=== PATIENT | female | born 1955 | race Caucasian/White ===

== ENCOUNTER → 2020-06-30 | Day surgery (SDC) | payer MEDICARE, BC ==
[~2020-06-30] MED LIST: Acetaminophen 325 MG Tab PO SCH; Cyclobenzaprine 10 MG Tab PO ONE; Ketorolac 30 MG/ML SDV IVPUSH PRN; Lactated Ringers 1,000 ML IV SCH; Lactated Ringers 1,000 ML ONE; Lidocaine 1% 4 ML ONE; Lidocaine 1%/Sod Bicarbonate in NS 8.4% 1 ML Syringe IDERM PRN; Pregabalin 25 MG Cap PO SCH; Propofol 200 MG/20 ML SDV ONE; Sodium Chloride 0.9% 10 ML Syringe FLUSH PRN; ceFAZolin 1 GM Vial ONE; fentaNYL 100 MCG/2 ML SDV IVPUSH PRN; fentaNYL 100 MCG/2 ML SDV ONE; oxyCODONE 5 MG Tab PO PRN; oxyCODONE ER 10 MG TAB.ER PO SCH
--- NOTE | 2020-06-30 08:59 | PCM.PREANE ---
Preanesthetic Assessment - Procedure Proposed Procedure: Total Right Hip Arthroplasty - Review of Systems Pulmonary: No Symptoms (Rigth TMJ/clicking noted) Neurological: No Symptoms (Fibromyalgia Syndrome/Arthritis/chronic lower back pain) Other: Reports: Depression, Anxiety - Lab Values: Laboratory Last Values MRSA (PCR) Negative 06/20/20 14:09 - Allergies Allergies/Adverse Reactions: Allergies Allergy/AdvReac Type Severity Reaction Status Date / Time bupropion [From Wellbutrin] Allergy Rash Verified 06/27/20 11:33 escitalopram [From Lexapro] Allergy Fatigue Verified 06/27/20 11:33 sertraline [From Zoloft] Allergy dry mouth Verified 06/27/20 11:33 trazodone Allergy Cough Verified 06/27/20 11:33 PreAnesthesia Questionnaire HEENT History: Reports: Allergic Rhinitis, Impaired Vision, Sinusitis, Other (See Below) Other HEENT History: wears glasses, tonsilitis, dental pain Cardiovascular History: Reports: High Cholesterol Respiratory History: Reports: None Gastrointestinal History: Reports: None Genitourinary History: Reports: Renal Calculus PERIPATOLOGIST History: Reports: Other (See Below) Other OB/BYN History: hot flashes, post menopausal Musculoskeletal History: Reports: Fibromyalgia, Osteoarthritis, Other (See Below) Other Musculoskeletal History: sjogrens, body aches, chronic pain, ankylosing spondylitis, coccydynia, lumbar back pain, myalgia, myositis, neck pain, right hip pain, left shoulder rotator cuff impingement, psoriatic arthritis Neurological History: Reports: Other (See Below) Other Neuro History: paresthesia Psychiatric History: Reports: Anxiety, Depression, Other (See Below) Other Psychiatric History: insomnia, fatigue Endocrine/Metabolic History: Reports: None Hematologic History: Reports: None Immunologic History: Reports: Other (See Below) Other Immunologic History: sjogrens Oncologic (Cancer) History: Reports: None Dermatologic History: Reports: Other (See Below) Other Dermatologic History: pruritis, seborrheic keratosis, rash, spongiotic dermatitis - Infectious Disease History Infectious Disease History: Reports: Novel Coronavirus, Other (See Below) Other Infectious Disease History: Covid February 2020 - Past Surgical History HEENT Surgical History: Reports: None Cardiovascular Surgical History: Reports: None Respiratory Surgical History: Reports: None GI Surgical History: Reports: Colonoscopy Female Surgical History: Reports: Other (See Below) Other Female Surgeries/Procedures: open kidney stone removal Endocrine Surgical History: Reports: None Neurological Surgical History: Reports: C-Spine, Discectomy, Spinal Fusion, Other (See Below) Musculoskeletal Surgical History: Reports: None Oncologic Surgical History: Reports: None - SUBSTANCE USE Tobacco Use Status *Q: Never Tobacco User Recreational Drug Use History: No - HOME MEDS Home Medications: Home Meds Calcium Carb/D3/Magnesium/Zinc [Marcellus Mag Zinc + D3] 1 tab PO DAILY 06/27/20 [History] Cholecalciferol (Vitamin D3) [Vitamin D3] 5,000 unit PO DAILY 06/27/20 [History] DULoxetine [Cymbalta] 30 mg PO DAILY 06/27/20 [History] DULoxetine [Cymbalta] 60 mg PO DAILY 06/27/20 [History] Docusate Sodium [Colace] 100 mg PO DAILY 06/27/20 [History] Fish Oil/[place]-3 Fatty Acids [Fish Oil 1,000 MG] 1 gm PO DAILY 06/27/20 [History] Gabapentin [Neurontin] 900 mg PO BEDTIME 06/27/20 [History] Multivitamin 1 tab PO DAILY 06/27/20 [History] Pilocarpine [Salagen] 2.5 - 5 mg PO Q6H PRN 06/27/20 [History] Tetrahydrozoline HCl [Eye Drops] 1 drop EYEBOTH TID 06/27/20 [History] Venlafaxine [Effexor XR] 37.5 mg PO DAILY 06/27/20 [History] Aspirin [Aspirin EC] 325 mg PO BID #70 tab 06/30/20 [Rx] Cyclobenzaprine [Flexeril] 5 mg PO BID PRN #20 tab 06/30/20 [Rx] oxyCODONE 5 - 10 mg PO Q4H PRN #40 tab 06/30/20 [Rx] - CURRENT (IN HOUSE) MEDS Current Meds: Current Medications Acetaminophen (Acetaminophen 325 Mg Tab) 975 mg PO ONETIME ROSIE Stop: 06/30/20 13:00 Morphine Sulfate 8 mg/Epinephrine HCl 0.3 mg/Cefuroxime Sodium 750 mg/Ketorolac Tromethamine 30 mg/Sodium Chloride 7.9 ml 0 mg .XX ASDIRECTED PRN PRN Reason: Pain Stop: 06/30/20 13:00 Lactated Ringer's (Ringers, Lactated) 1,000 mls @ 125 mls/hr IV ASDIRECTED ROSIE Stop: 06/30/20 23:00 Lidocaine/Sodium Bicarbonate (Lidocaine 1%/Sod Bicarbonate In Ns 8.4% 1 Ml Syringe) 0.25 ml IDERM ONETIME PRN PRN Reason: Prior to IV Start Stop: 06/30/20 18:00 Oxycodone HCl (Oxycodone Er 10 Mg Tab.Er) 10 mg PO ONETIME ROSIE Stop: 06/30/20 13:00 Pregabalin (Pregabalin 25 Mg Cap) 50 mg PO ONETIME ROSIE Stop: 06/30/20 13:00 Sodium Chloride (Sodium Chloride 0.9% 10 Ml Syringe) 10 ml FLUSH ASDIRECTED PRN PRN Reason: Keep Vein Open Stop: 06/30/20 18:00
--- NOTE | 2020-06-30 09:38 | PCM.PREANE ---
Preanesthetic Assessment - Procedure Proposed Procedure: Right total hip arthroplasty - Anesthesia/Transfusion/Family Hx Anesthesia History: Prior Anesthesia Without Reaction Family History of Anesthesia Reaction: No Transfusion History: No Prior Transfusion(s) - Review of Systems General: No Symptoms Pulmonary: No Symptoms Cardiovascular: No Symptoms Gastrointestinal: No Symptoms Neurological: No Symptoms Other: Reports: Anxiety - Physical Assessment NPO Status Date: 06/29/20 NPO Status Time: 00:00 Height: 1.63 m Weight: 58.06 kg ASA Class: 2 Mental Status: Alert & Oriented x3 Dentition: Reports: Implants (lower right) Thyro-Mental Finger Breadths: 3 Mouth Opening Finger Breadths: 2 ROM/Head Extension: Full Lungs: Clear to Auscultation, Normal Respiratory Effort Cardiovascular: Regular Rate, Regular Rhythm - Lab Values: Laboratory Last Values MRSA (PCR) Negative 06/20/20 14:09 - Imaging/EKG Impressions: EKG SR rate 69 - Allergies Allergies/Adverse Reactions: Allergies Allergy/AdvReac Type Severity Reaction Status Date / Time bupropion [From Wellbutrin] Allergy Rash Verified 06/27/20 11:33 escitalopram [From Lexapro] Allergy Fatigue Verified 06/27/20 11:33 sertraline [From Zoloft] Allergy dry mouth Verified 06/27/20 11:33 trazodone Allergy Cough Verified 06/27/20 11:33 - Anesthesia Plan Pre-Op Medication Ordered: None - Acknowledgements Anesthesia Type Planned: Spinal Pt an Appropriate Candidate for the Planned Anesthesia: Yes Alternatives and Risks of Anesthesia Discussed w Pt/Guardian: Yes Pt/Guardian Understands and Agrees with Anesthesia Plan: Yes PreAnesthesia Questionnaire HEENT History: Reports: Allergic Rhinitis, Impaired Vision, Sinusitis, Other (See Below) Other HEENT History: wears glasses, tonsilitis, dental pain Cardiovascular History: Reports: High Cholesterol Respiratory History: Reports: None Gastrointestinal History: Reports: None Genitourinary History: Reports: Renal Calculus HEALTH PLAN SPECIALIST History: Reports: Other (See Below) Other OB/BYN History: hot flashes, post menopausal Musculoskeletal History: Reports: Fibromyalgia, Osteoarthritis, Other (See Below) Other Musculoskeletal History: sjogrens, body aches, chronic pain, ankylosing spondylitis, coccydynia, lumbar back pain, myalgia, myositis, neck pain, right hip pain, left shoulder rotator cuff impingement, psoriatic arthritis Neurological History: Reports: Other (See Below) Other Neuro History: paresthesia Psychiatric History: Reports: Anxiety, Depression, Other (See Below) Other Psychiatric History: insomnia, fatigue Endocrine/Metabolic History: Reports: None Hematologic History: Reports: None Immunologic History: Reports: Other (See Below) Other Immunologic History: sjogrens Oncologic (Cancer) History: Reports: None Dermatologic History: Reports: Other (See Below) Other Dermatologic History: pruritis, seborrheic keratosis, rash, spongiotic dermatitis - Infectious Disease History Infectious Disease History: Reports: Novel Coronavirus, Other (See Below) Other Infectious Disease History: Covid February 2020 - Past Surgical History HEENT Surgical History: Reports: None Cardiovascular Surgical History: Reports: None Respiratory Surgical History: Reports: None GI Surgical History: Reports: Colonoscopy Female Surgical History: Reports: Other (See Below) Other Female Surgeries/Procedures: open kidney stone removal Endocrine Surgical History: Reports: None Neurological Surgical History: Reports: C-Spine, Discectomy, Spinal Fusion, Other (See Below) Musculoskeletal Surgical History: Reports: None Oncologic Surgical History: Reports: None - SUBSTANCE USE Tobacco Use Status *Q: Never Tobacco User Tobacco Use Within Last Twelve Months: No Second Hand Smoke Exposure: No Days Per Week of Alcohol Use: 0 Number of Drinks Per Day: 0 Total Drinks Per Week: 0 Recreational Drug Use History: No - HOME MEDS Home Medications: Home Meds Calcium Carb/D3/Magnesium/Zinc [[place] Mag Zinc + D3] 1 tab PO DAILY 06/27/20 [History] Cholecalciferol (Vitamin D3) [Vitamin D3] 5,000 unit PO DAILY 06/27/20 [History] DULoxetine [Cymbalta] 30 mg PO DAILY 06/27/20 [History] DULoxetine [Cymbalta] 60 mg PO DAILY 06/27/20 [History] Docusate Sodium [Colace] 100 mg PO DAILY 06/27/20 [History] Fish Oil/[place]-3 Fatty Acids [Fish Oil 1,000 MG] 1 gm PO DAILY 06/27/20 [History] Gabapentin [Neurontin] 900 mg PO BEDTIME 06/27/20 [History] Multivitamin 1 tab PO DAILY 06/27/20 [History] Pilocarpine [Salagen] 2.5 - 5 mg PO Q6H PRN 06/27/20 [History] Tetrahydrozoline HCl [Eye Drops] 1 drop EYEBOTH TID 06/27/20 [History] Venlafaxine [Effexor XR] 37.5 mg PO DAILY 06/27/20 [History] Aspirin [Aspirin EC] 325 mg PO BID #70 tab 06/30/20 [Rx] Cyclobenzaprine [Flexeril] 5 mg PO BID PRN #20 tab 06/30/20 [Rx] oxyCODONE 5 - 10 mg PO Q4H PRN #40 tab 06/30/20 [Rx] - CURRENT (IN HOUSE) MEDS Current Meds: Current Medications Acetaminophen (Acetaminophen 325 Mg Tab) 975 mg PO ONETIME ROSIE Stop: 06/30/20 13:00 Last Admin: 06/30/20 09:13 Dose: 975 mg Documented by: Morphine Sulfate 8 mg/Epinephrine HCl 0.3 mg/Cefuroxime Sodium 750 mg/Ketorolac Tromethamine 30 mg/Sodium Chloride 7.9 ml 0 mg .XX ASDIRECTED PRN PRN Reason: Pain Stop: 06/30/20 13:00 Lactated Ringer's (Ringers, Lactated) 1,000 mls @ 125 mls/hr IV ASDIRECTED ROSIE Stop: 06/30/20 23:00 Lidocaine/Sodium Bicarbonate (Lidocaine 1%/Sod Bicarbonate In Ns 8.4% 1 Ml Syringe) 0.25 ml IDERM ONETIME PRN PRN Reason: Prior to IV Start Stop: 06/30/20 18:00 Oxycodone HCl (Oxycodone Er 10 Mg Tab.Er) 10 mg PO ONETIME ROSIE Stop: 06/30/20 13:00 Last Admin: 06/30/20 09:13 Dose: 10 mg Documented by: Pregabalin (Pregabalin 25 Mg Cap) 50 mg PO ONETIME ROSIE Stop: 06/30/20 13:00 Last Admin: 06/30/20 09:13 Dose: 50 mg Documented by: Sodium Chloride (Sodium Chloride 0.9% 10 Ml Syringe) 10 ml FLUSH ASDIRECTED PRN PRN Reason: Keep Vein Open Stop: 06/30/20 18:00
[2020-06-30] MEDS: Vancomycin 1 GM SDV ONE ×2 (11:57→12:27)
[2020-06-30] MEDS: Morphine 8 MG, EPINEPHrine 0.3 MG, Cefuroxime 750 MG, Ketorolac 30 MG, Sodium Chloride ... PRN ×10 (11:57→12:25)
--- NOTE | 2020-06-30 13:06 | PCM.POSTAN ---
POST ANESTHESIA ASSESSMENT - MENTAL STATUS Mental Status: Alert, Oriented - VITAL SIGNS Vital Signs: Last Vital Signs Temp 36.6 C 06/30/20 09:10 Pulse 75 06/30/20 09:10 Resp 20 06/30/20 09:10 BP 112/56 L 06/30/20 09:10 Pulse Ox 98 06/30/20 09:10 - RESPIRATORY Respiratory Status: Respiratory Rate WNL, Airway Patent, O2 Saturation Stable, Supplemental Oxygen - CARDIOVASCULAR CV Status: Pulse Rate WNL, Blood Pressure Stable - GASTROINTESTINAL GI Status: No Symptoms - PAIN Pain Score: 0 - POST OP HYDRATION Hydration Status: Adequate & Stable - OBSERVATIONS Free Text/Narrative:: no anesthesia complications noted
--- NOTE | 2020-06-30 14:21 | CR ---
Pelvis and right hip: AP view of the pelvis was obtained as well as crosstable lateral view of the right hip. Comparison: Prior right hip CT study of 06/17/20. Right hip prosthesis is seen. Components are aligned. Degenerative joint space narrowing is seen within the left hip. Osteopenia is noted. Soft tissue air is noted around the right hip. Impression: 1. Satisfactory appearance of recently placed right hip prosthesis. 2. Fairly severe degenerative change is noted within the left hip. 3. Osteopenia. Diagnostic code #3
--- NOTE | 2020-06-30 17:56 | PCM.OPNOTE ---
- General Post-Op/Procedure Note Date of Surgery/Procedure: 06/30/20 Operative Procedure(s): right total hip arthroplasty with [employer]on[employer] robotics Pre Op Diagnosis: right hip osteoarthrosis Post-Op Diagnosis: Same Anesthesia Technique: Local, MAC, Spinal Primary Surgeon: Kavon Sherman Anesthesia Provider: Tristian Myers Commercial Loan Underwriter: Jonelle Guzmán Commercial Loan Underwriter: More Hunter Complications: None Condition: Good Free Text/Narrative:: Intake & Output 06/30/20 06/30/20 06/30/20 06:59 14:59 22:59 Intake Total 150 Balance 150 52 cup 5 stem 36+0
--- NOTE | 2020-07-10 08:00 | OR ---
DATE OF OPERATION: 06/30/2020 SURGEON: Kavon Sherman MD OPERATION PERFORMED: Right total hip arthroplasty with [employer] robotics. PREOPERATIVE DIAGNOSIS: Right hip osteoarthrosis. POSTOPERATIVE DIAGNOSIS: Right hip osteoarthrosis. ANESTHESIA: Local MAC with spinal. ANESTHESIA PROVIDER: Noah Wyatt. EVENT ATTENDANT: Jonelle Guzmán PA-C; and More Hunter LPN. ESTIMATED BLOOD LOSS: 200 mL. COMPLICATIONS: None. CONDITION: Stable. IMPLANTS: 1. [place] size 52 mm solid Tritanium II acetabular cup. 2. [place] size 5 Accolade II stem. 3. [place] size 36 +0 Biolox femoral head. DESCRIPTION OF PROCEDURE: The patient was identified in the preoperative holding area where proper site was marked and identified by surgeon. The patient was taken back to the operating theater where after adequate anesthesia, the patient was placed in the left lateral decubitus position. Pegs were placed. Bony prominences were well padded. Gluteal fold was parallel to the floor. Right hip was then sterilely prepped and draped in the usual sterile fashion. OR time-out was performed. The patient received 2 g IV Ancef. At this time, 3 pins were placed in the iliac crest 3 fingerbreadths from the ASIS and the [place] robotic array was placed and making sure that it was down on the iliac crest. At this time, standard posterior incision was made, and this was taken down to the IT band and gluteal fascia. This was incised along the incisional length. Charnley retractor was then placed. Short external rotators were identified. Takedown of the short external rotators was done from the level of the piriformis down to the lesser trochanter. The [place] robotic checkpoint was then placed in the greater trochanter and the hip was dislocated. Neck cut was completed and found to be adequate. Attention was turned to the acetabulum. Anterior and posterior acetabular retractors were placed. Circumferential removal of the labrum as well as pulvinar was done at this time. A checkpoint was then placed at the superior rim of the acetabulum extra-articularly. 15 points were then obtained intra-articularly. The anterior and posterior horns were marked using the [place] robotic array, and then 15 points were obtained from the extra- articular rim. At this time, the 52 mm reamer and a [place] Alexis robotic arm were brought in. The reamer was set for 45 degrees of abduction and 20 degrees of anteversion. The reaming was then completed until all green area was removed on the [place] robotic plan. The reamer was then removed. The 52 mm solid Tritanium II acetabular cup was placed on a [place] robotic arm and was impacted into place and was found to be in adequate position. The 36 flat liner was then impacted into place and attention was turned to the femur. Box chisel was used out laterally. Starter awl was placed down the canal. Starting with the 0 broach, I was able to broach up to a size 5 which was found to be rotationally and vertically stable. A 36 +0 was trialed, was found to have adequate christian of leg lengths, and was stable throughout range of motion. The trial implants were then removed. Size 5 Accolade II stem was impacted into place. A 36 +0 Biolox femoral head was impacted into place. Hip was then relocated. A #5 Ethibond suture was used for closure of the short external rotators and capsule. Periarticular injection was completed. 1 L pulse lavage irrigation with Ancef was then irrigated through the hip as well as 400 mL of IrriSept irrigation. Topical tranexamic acid and vancomycin powder were applied. A #2 barbed suture was used for closure of the IT band and gluteal fascia, 2-0 Vicryl was used subcutaneously, and Prineo was used for closure of the skin. The patient tolerated the procedure well and was sent to PACU in stable condition. MMODAL /[id number]
== END | disposition home or self-care (01) ==
LOC: JD.SDS 09:11
PROVIDERS: ATTEND Orthopaedic Surgery
DX: M16.11 Unilateral primary osteoarthritis, right hip (principal); G89.29 Other chronic pain; E78.5 Hyperlipidemia, unspecified; L40.50 Arthropathic psoriasis, unspecified; M35.00 Sjogren syndrome, unspecified; M45.9 Ankylosing spondylitis of unspecified sites in spine; E78.00 Pure hypercholesterolemia, unspecified; Z79.2 Long term (current) use of antibiotics; Z88.8 Allergy status to other drugs, medicaments and biological substances; Z79.899 Other long term (current) drug therapy; Z98.890 Other specified postprocedural states
CPT/HCPCS: 27130; 36415; 73501; 86850; 86900; 86901; 87641; 97116; 97161; 97165; 97535; A9270; C1713; C1776; J0171; J0690; J0697; J1885; J2270; J2370; J2704; J3010; J3370; J7120; 01214

== ENCOUNTER 2021-03-26 09:53 | Emergency (ER) | payer MEDICARE, BC ==
--- NOTE | 2021-03-26 10:37 | EDM.PDOC ---
ED HPI GENERAL MEDICAL PROBLEM - General Chief Complaint: Chest Pain Stated Complaint: [facility] Time Seen by Provider: 03/26/21 10:32 Source of Information: Reports: Patient History Limitations: Reports: No Limitations - History of Present Illness INITIAL COMMENTS - FREE TEXT/NARRATIVE: 66-year-old female presents to the ED per [facility]. She was seen in the clinic by her primary care provider Heaven Anthony both yesterday and today with left-sided precordial chest pain. Pain started about 3 days ago and tends to be quite sharp and lancinating seems to start in her back and travel around the rib into the anterior aspect of the chest. She states it is primarily felt under her left breast. It is made worse by deep breathing. No known chest wall trauma. No rash to identify shingles. She believes she had a Shingrix injection within the last 2 years. Denies cough or sputum production no fever or chills. ECG done in the clinic yesterday did not reveal any evidence of cardiac arrhythmia or myocardial infarction. Troponins done yesterday in clinic were reportedly negative. Pain is worse this morning and therefore she was transferred to our hospital for further work-up. No past history of DVT or PE. No recent surgeries on her lower extremities Onset: Gradual Onset Date: 03/24/21 Duration: Day(s):, Getting Worse Location: Reports: Chest (Chest wall pain starting primarily left back and radiating along ribs 5 and 6 into the anterior chest) Quality: Reports: Sharp, Stabbing, Other (Lancinating sharp stabbing shooting pain) Severity: Moderate (70 8 out of 10) Improves with: Reports: Rest Worsens with: Reports: Other (Made worse by movement and deep breathing) Context: Reports: Other (Spontaneous occurrence). Denies: Activity, Exercise, Lifting, Sick Contact, Trauma Associated Symptoms: Reports: Loss of Appetite, Shortness of Breath. Denies: Confusion, Chest Pain, Cough, cough w sputum, Diaphoresis, Fever/Chills, Headaches, Malaise, Nausea/Vomiting, Rash, Seizure, Syncope (Subjective dyspnea as deep breathing makes the pain worse.), Weakness Treatments POLICY VALUE CALCULATOR: Reports: Acetaminophen - Related Data Allergies Allergy/AdvReac Type Severity Reaction Status Date / Time bupropion [From Wellbutrin] Allergy Rash Verified 03/26/21 09:58 escitalopram [From Lexapro] AdvReac Fatigue Verified 03/26/21 09:58 sertraline [From Zoloft] AdvReac dry mouth Verified 03/26/21 09:58 trazodone AdvReac Cough Verified 03/26/21 09:58 Home Meds: Home Meds Calcium Carb/D3/Magnesium/Zinc [Marcellus Mag Zinc + D3] 1 tab PO DAILY 06/27/20 [History] Cholecalciferol (Vitamin D3) [Vitamin D3] 5,000 unit PO DAILY 06/27/20 [History] DULoxetine [Cymbalta] 30 mg PO DAILY 06/27/20 [History] DULoxetine [Cymbalta] 60 mg PO DAILY 06/27/20 [History] Docusate Sodium [Colace] 100 mg PO DAILY 06/27/20 [History] Fish Oil/Miles-3 Fatty Acids [Fish Oil 1,000 MG] 1 gm PO DAILY 06/27/20 [History] Gabapentin [Neurontin] 900 mg PO BEDTIME 06/27/20 [History] Multivitamin 1 tab PO DAILY 06/27/20 [History] Pilocarpine [Salagen] 2.5 - 5 mg PO Q6H PRN 06/27/20 [History] Tetrahydrozoline HCl [Eye Drops] 1 drop EYEBOTH TID 06/27/20 [History] Venlafaxine [Effexor XR] 37.5 mg PO DAILY 06/27/20 [History] Aspirin [Aspirin EC] 325 mg PO BID #70 tab 06/30/20 [Rx] Cyclobenzaprine [Flexeril] 5 mg PO BID PRN #20 tab 06/30/20 [Rx] oxyCODONE 5 - 10 mg PO Q4H PRN #40 tab 06/30/20 [Rx] Gabapentin [Neurontin] 600 mg PO DAILY #14 tab 03/26/21 [Rx] oxyCODONE HCl/Acetaminophen [Percocet 5-325 mg Tablet] 1 - 2 each PO Q4H PRN #20 tablet 03/26/21 [Rx] Past Medical History HEENT History: Reports: Allergic Rhinitis, Impaired Vision, Sinusitis, Other (See Below) Other HEENT History: wears glasses, tonsilitis, dental pain. Patient has sicca syndrome. Cardiovascular History: Reports: High Cholesterol Respiratory History: Reports: None Gastrointestinal History: Reports: None Genitourinary History: Reports: Renal Calculus CREDIT DIRECTOR History: Reports: Other (See Below) Other CREDIT DIRECTOR History: hot flashes, post menopausal Musculoskeletal History: Reports: Fibromyalgia, Osteoarthritis, Other (See Below) Other Musculoskeletal History: sjogrens, body aches, chronic pain, ankylosing spondylitis, coccydynia, lumbar back pain, myalgia, myositis, neck pain, right hip pain, left shoulder rotator cuff impingement, psoriatic arthritis Neurological History: Reports: Other (See Below) Other Neuro History: paresthesia Psychiatric History: Reports: Anxiety, Depression, Other (See Below) Other Psychiatric History: insomnia, fatigue Endocrine/Metabolic History: Reports: None Hematologic History: Reports: None Immunologic History: Reports: Other (See Below) Other Immunologic History: sjogrens Oncologic (Cancer) History: Reports: None Dermatologic History: Reports: Other (See Below) Other Dermatologic History: pruritis, seborrheic keratosis, rash, spongiotic dermatitis - Infectious Disease History Infectious Disease History: Reports: Novel Coronavirus, Other (See Below) Other Infectious Disease History: Covid February 2020 - Past Surgical History HEENT Surgical History: Reports: None Cardiovascular Surgical History: Reports: None Respiratory Surgical History: Reports: None GI Surgical History: Reports: Colonoscopy Female Surgical History: Reports: Other (See Below) Other Female Surgeries/Procedures: open kidney stone removal Endocrine Surgical History: Reports: None Neurological Surgical History: Reports: C-Spine, Discectomy, Spinal Fusion, Other (See Below) Musculoskeletal Surgical History: Reports: Hip Replacement, Other (See Below) Other Musculoskeletal Surgeries/Procedures:: lower back surgery, neck surgery Oncologic Surgical History: Reports: None Social & Family History - Tobacco Use Tobacco Use Status *Q: Never Tobacco User Second Hand Smoke Exposure: No - Caffeine Use Caffeine Use: Reports: Coffee - Recreational Drug Use Recreational Drug Use: No - Living Situation & Occupation Living situation: Reports: Occupation: Employed ED ROS GENERAL - Review of Systems Review Of Systems: See Below Constitutional: Reports: Malaise, Weakness, Fatigue, Decreased Appetite (From not sleeping well). Denies: Fever, Chills HEENT: Reports: Glasses Respiratory: Reports: Shortness of Breath, Pleuritic Chest Pain, Other (Recurrent sharp stabbing lancinating pain originating in her left mid back and radiating to the left anterior chest underneath her left breast. Gradually worsening over the last 3 days). Denies: Wheezing Cardiovascular: Reports: Chest Pain. Denies: Blood Pressure Problem (See history of present illness), Claudication, Dyspnea on Exertion, Edema, Lightheadedness, Orthopnea, Palpitations, Syncope, Other Endocrine: Reports: No Symptoms GI/Abdominal: Reports: Decreased Appetite : Reports: No Symptoms Musculoskeletal: Reports: Neck Pain, Back Pain (Previous cervical spine fusion. Previous disc discectomy lumbar spine) Skin: Reports: No Symptoms. Denies: Rash Neurological: Reports: No Symptoms Psychiatric: Reports: No Symptoms Hematologic/Lymphatic: Reports: No Symptoms Immunologic: Reports: No Symptoms ED EXAM, GENERAL - Physical Exam Exam: See Below Exam Limited By: No Limitations General Appearance: Alert, WD/WN, Anxious, Mild Distress, Other (Temperature is 36.8 degrees. Heart rate is 75 and sinus respiratory 16 with O2 sats 100% room air. BP is 123/55) Eye Exam: Bilateral Eye: Normal Inspection, PERRL Throat/Mouth: Normal Inspection, Normal Lips, Normal Teeth, Normal Voice Head: Atraumatic, Normocephalic Neck: Normal Inspection, Supple, Non-Tender, Limited Range of Motion, Other (Well-healed midline scar cervical spine). No: Lymphadenopathy (L), Lymphadenopathy (R) Respiratory/Chest: No Respiratory Distress, Lungs Clear, Normal Breath Sounds, No Accessory Muscle Use, Other (No chest wall rash. Pain on palpation of ribs nodes 4 5 and 645 and 6 midclavicular line and anterior axillary line on palpation left side. No pain on palpation of the right chest wall) Cardiovascular: Normal Peripheral Pulses, Regular Rate, Rhythm, No Edema, No Gallop, No JVD, No Rub Peripheral Pulses: 3+: Carotid (L), Carotid (R), Posterior Tibial (L), Posterior Tibial (R), Dorsalis Pedis (L), Dorsalis Pedis (R) GI/Abdominal: Normal Bowel Sounds, Soft, Non-Tender, No Organomegaly, No Distention, Other (Patient has had previous right-sided nephrectomy scar for removal of a stone from proximal ureter 42 years ago.) Back Exam: Normal Inspection, Full Range of Motion. No: CVA Tenderness (L), CVA Tenderness (R) Extremities: Normal Inspection, Normal Range of Motion, Non-Tender, No Pedal Edema Neurological: Alert, Oriented, CN II-XII Intact, Normal Cognition, No Motor/Sensory Deficits (Not tested). No: Normal Gait Psychiatric: Anxious Skin Exam: Warm, Dry, Intact, No Rash, Other (No rash characteristic of shingles identified) #1 Interpretation EKG Date: 03/26/21 Time: 10:13 Rhythm: NSR Rate (Beats/Min): 80 [place]: Normal P-Wave: Present QRS: Normal ST-T: Other (Baseline is a regular in the limb leads making interpretation of leads I and aVL and possible) QT: Normal EKG Interpretation Comments: Normal ECG Course - Vital Signs Last Recorded V/S: Last Vital Signs Temp 36.8 C 03/26/21 09:55 Pulse 75 03/26/21 09:55 Resp 16 03/26/21 09:55 BP 123/55 L 03/26/21 09:55 Pulse Ox 100 03/26/21 09:55 - Orders/Labs/Meds Labs: Laboratory Tests 03/26/21 03/26/21 03/26/21 Range/Units 10:56 10:56 10:56 WBC 4.20 (3.98-10.04) K/mm3 RBC 4.34 (3.98-5.22) M/mm3 Hgb 13.1 (11.2-15.7) gm/dl Hct 40.5 (34.1-44.9) % MCV 93.3 (79.4-94.8) fl MCH 30.2 (25.6-32.2) pg MCHC 32.3 (32.2-35.5) g/dl RDW Std Deviation 43.7 (36.4-46.3) fL Plt Count 275 (182-369) K/mm3 MPV 9.5 (9.4-12.3) fl Neut % (Auto) 34.6 (34.0-71.1) % Lymph % (Auto) 50.7 (19.3-51.7) % Phelps % (Auto) 10.2 (4.7-12.5) % Eos % (Auto) 3.8 (0.7-5.8) Baso % (Auto) 0.7 (0.1-1.2) % Neut # (Auto) 1.45 L (1.56-6.13) K/mm3 Lymph # (Auto) 2.13 (1.18-3.74) K/mm3 Phelps # (Auto) 0.43 H (0.24-0.36) K/mm3 Eos # (Auto) 0.16 (0.04-0.36) K/mm3 Baso # (Auto) 0.03 (0.01-0.08) K/mm3 PT 10.3 (9.7-12.0) SECONDS INR 0.93 APTT 28.0 (21.7-31.4) SECONDS D-Dimer, Quantitative (0.19-0.50) mg/L Sodium 142 (136-145) mEq/L Potassium 3.8 (3.5-5.1) mEq/L Chloride 105 (98-107) mEq/L Carbon Dioxide 30 (21-32) mEq/L Anion Gap 10.8 (5-15) BUN 8 (7-18) mg/dL Creatinine 0.8 (0.55-1.02) mg/dL Est Cr Clr Drug Dosing 58.12 mL/min Estimated GFR (MDRD) > 60 (>60) mL/min BUN/Creatinine Ratio 10.0 L (14-18) Glucose 92 (70-99) mg/dL Calcium 8.7 (8.5-10.1) mg/dL Magnesium 2.0 (1.8-2.4) mg/dL Total Bilirubin 0.3 (0.2-1.0) mg/dL AST 22 (15-37) U/L ALT 32 (14-59) U/L Alkaline Phosphatase 96 (46-116) U/L CK-MB (CK-2) < 0.5 (0-3.6) ng/ml Troponin I < 0.017 (0.00-0.056) ng/mL C-Reactive Protein <0.2 (<1.0) mg/dL NT-Pro-B Natriuret Pep (0-125) pg/mL Total Protein 6.4 (6.4-8.2) g/dl Albumin 3.2 L (3.4-5.0) g/dl Globulin 3.2 gm/dL Albumin/Globulin Ratio 1.0 (1-2) 03/26/21 03/26/21 Range/Units 10:56 10:56 WBC (3.98-10.04) K/mm3 RBC (3.98-5.22) M/mm3 Hgb (11.2-15.7) gm/dl Hct (34.1-44.9) % MCV (79.4-94.8) fl MCH (25.6-32.2) pg MCHC (32.2-35.5) g/dl RDW Std Deviation (36.4-46.3) fL Plt Count (182-369) K/mm3 MPV (9.4-12.3) fl Neut % (Auto) (34.0-71.1) % Lymph % (Auto) (19.3-51.7) % Phelps % (Auto) (4.7-12.5) % Eos % (Auto) (0.7-5.8) Baso % (Auto) (0.1-1.2) % Neut # (Auto) (1.56-6.13) K/mm3 Lymph # (Auto) (1.18-3.74) K/mm3 Phelps # (Auto) (0.24-0.36) K/mm3 Eos # (Auto) (0.04-0.36) K/mm3 Baso # (Auto) (0.01-0.08) K/mm3 PT (9.7-12.0) SECONDS INR APTT (21.7-31.4) SECONDS D-Dimer, Quantitative 0.22 (0.19-0.50) mg/L Sodium (136-145) mEq/L Potassium (3.5-5.1) mEq/L Chloride (98-107) mEq/L Carbon Dioxide (21-32) mEq/L Anion Gap (5-15) BUN (7-18) mg/dL Creatinine (0.55-1.02) mg/dL Est Cr Clr Drug Dosing mL/min Estimated GFR (MDRD) (>60) mL/min BUN/Creatinine Ratio (14-18) Glucose (70-99) mg/dL Calcium (8.5-10.1) mg/dL Magnesium (1.8-2.4) mg/dL Total Bilirubin (0.2-1.0) mg/dL AST (15-37) U/L ALT (14-59) U/L Alkaline Phosphatase (46-116) U/L CK-MB (CK-2) (0-3.6) ng/ml Troponin I (0.00-0.056) ng/mL C-Reactive Protein (<1.0) mg/dL NT-Pro-B Natriuret Pep 51 (0-125) pg/mL Total Protein (6.4-8.2) g/dl Albumin (3.4-5.0) g/dl Globulin gm/dL Albumin/Globulin Ratio (1-2) Meds: Medications Discontinued Medications Generic Name Dose Route Start Last Admin Trade Name Sebastianq PRN Reason Stop Dose Admin Hydromorphone HCl 0.5 mg 03/26/21 12:38 03/26/21 12:46 Hydromorphone 0.5 Mg/0.5 Ml Syringe IVPUSH 03/26/21 12:39 0.5 mg ONETIME ONE Administration Ondansetron HCl 4 mg 03/26/21 12:38 03/26/21 12:46 Ondansetron 4 Mg/2 Ml Sdv IVPUSH 03/26/21 12:39 4 mg ONETIME ONE Administration - Radiology Interpretation Free Text/Narrative:: 66-year-old female presents to our ED per [facility] at the suggestion of her primary care provider Heaven Anthony physician fleet administrative assistant. Patient has had left sided chest pain starting in her back rating along the costal margin under her left breast starting yesterday and gradually intensifying. Pain is made worse by deep breathing. No associated fever chills or cough. No signs of any skin rash to suggest herpes zoster. She was sent to the ED to rule out more serious etiologies such as pulmonary embolism or heart related illness. She will have routine labs performed as well as repeat ECG and chest x-ray. Given Dilaudid 0.5 mg IV with Zofran 4 mg mg IV for pain relief pain initial impression that this is neurogenic in origin since it is sharp stabbing lancinating and knifelike in her left anterior chest. - Re-Assessments/Exams Free Text/Narrative Re-Assessment/Exam: 03/26/21 11:44 chest x-ray reveals heart size and mediastinum to be normal. Atelectasis is seen within the right midlung. Lungs are otherwise clear. Prior cervical spine surgery appreciated. I see no definite acute osseous abnormality.Hematology reveals a normal white count at 4.20. The neutrophil count is 34.6 with 50.7% lymphocytes indicating underlying viral infection with right shift. Hemoglobin 13.1 with hematocrit of 40.5. Platelet count 275,000. PT is 10.3 with an INR of 0.93 and PTT is 28.0 . D-dimer was 0.22 .Chemistry is pending 03/26/21 12:39 Chemistry revealed a normal sodium at 142 and a potassium of 3.8. Chloride was 105 with a bicarb of 30. Anion gap is 10.8. BUN is 8 with a creatinine of 0.8 and a GFR greater than 60. BUN/creatinine ratio was 10. Glucose was 92 with a calcium of 8.7. Magnesium was 2.0 liver function normal. CK-MB fraction less than 0.5 troponin I less than 0.017. C-reactive protein less than 0.2. BNP was 51. Total protein 6.4 with an albumin fraction slightly low at 3.2I have discussed the findings with the patient and I believe her pain is neurogenic in origin likely due to coxsackievirus or echovirus. Shingles has to be ruled out and she is to check her back and side daily for the next 3 to 4 days to make sure shingles does not occur even though she has been vaccinated. I am going to discharge her on Percocet tabs 5/325 mg strength 1 or 2 every 4-6 hours necessary for pain relief and increase her gabapentin to 600 mg in the morning and continue 900 mg at bedtime for the next 10 days. I will have her follow-up with Dorothy Anthony in [facility] on Tuesday or next week. Departure - Departure Time of Disposition: 12:46 Disposition: Home, Self-Care 01 Condition: Fair Clinical Impression: Neuralgia and neuritis, unspecified, Acute chest wall pain, Non-cardiac chest pain Prescriptions: Gabapentin [Neurontin] 600 mg PO DAILY #14 tab oxyCODONE HCl/Acetaminophen [Percocet 5-325 mg Tablet] 1 - 2 each PO Q4H PRN #20 tablet PRN Reason: pain relief. Instructions: Neuropathic Pain, Chest Wall Pain, [id number] Referrals: PCP,None [Ordering Only Provider] - Forms: ED Department Discharge Additional Instructions: Evaluation in the emergency room today in regards to left-sided chest wall pain originating her back and radiating around the front under the breasts. This is in the distribution of ribs 5 and 6. The pain is sharp and lancinating and fleeting indicating a neurogenic component to the pain. Chest x-ray was normal. There is no evidence of heart related illness with normal cardiac markers and no evidence of blood clot in the lungs. Suggest pain medication Percocet 5/325 mg strength usually 1 tablet every 4-6 hours necessary for pain relief. Suggest increasing your Neurontin to 600 mg in the morning and 900 mg at bedtime for the next 10 to 14 days until this pain settles down. Pain is most likely secondary to echovirus or coxsackievirus Infection. It is still possible that you are vickie the shingles as it will cause this type of pain for 4 to 5 days often before a rash shows up. If any rash does develop over the next few days you need to see a physician soon as possible to start antiviral medication and steroids to prevent long-term pain problems from herpes zoster or shingles infection. Suggest follow-up with Viry Anthony your primary care provider on Tuesday or next week. Of note the pain medication does cause constipation. Suggest MiraLAX powder 17 g or 1 scoop daily while on the pain medication to prevent constipation from occurring. Sepsis Event Note (ED) - Evaluation Sepsis Screening Result: No Definite Risk - Focused Exam Vital Signs: Vital Signs Temp Pulse Resp BP Pulse Ox 03/26/21 09:55 36.8 C 75 16 123/55 L 100
--- NOTE | 2021-03-26 11:27 | CR ---
Chest: Frontal view of the chest was obtained. Comparison: Prior chest x-ray of 03/25/21. Heart size and mediastinum are normal. Atelectasis is seen within the right midlung. Lungs otherwise are clear. Prior cervical spine surgery is noted. I see no definite acute osseous abnormality. Impression: 1. Atelectasis within the right midlung. Prior cervical spine surgery. 2. No definite acute abnormality is seen. Diagnostic code #2
[2021-03-26] MEDS ORDERED: HYDROmorphone 0.5 MG/0.5 ML Syringe IVPUSH ONE (12:38)
[2021-03-26] MEDS ORDERED: Ondansetron 4 MG/2 ML SDV IVPUSH ONE (12:38)
== END 2021-03-26 13:15 | disposition home or self-care (01) ==
LOC: JD.ED 09:53
DX: R07.2 Precordial pain (principal); M79.2 Neuralgia and neuritis, unspecified; E78.00 Pure hypercholesterolemia, unspecified; Z88.5 Allergy status to narcotic agent; Z88.8 Allergy status to other drugs, medicaments and biological substances; Z79.82 Long term (current) use of aspirin; Z79.899 Other long term (current) drug therapy
CPT/HCPCS: 36415; 71045; 80053; 82553; 83735; 83880; 84484; 85025; 85379; 85610; 85730; 86140; 93005; 96374; 96375; 99285; J1170; J2405